=== PATIENT | male | born 1985 ===

== ENCOUNTER 2017-02-23 08:50 | Emergency (ER) | payer BC ==
[2017-02-23 08:58] VITALS: BMI 30.6
[2017-02-23 09:00] VITALS: BP 127/85; PULSE 82; RESP 18; TEMP 97.7; O2SAT 99
[2017-02-23] MEDS ORDERED: Amoxicillin-Clav 875-125 mg Tab PO STA (09:19)
[2017-02-23] MEDS ORDERED: Amoxicillin-Clav 875-125 mg Tab PO ONE (09:23)
--- NOTE | 2017-02-23 11:34 | C.PDOC ---
History Of Present Illness 31 yr old male presents to the ER with complaints of right ear pain since last night. Patient also states when he moves his jaw he hears a clicking sound. Patient denies fever, chills, drainage fro the ear, vision changes, neck pain or headache. Time Seen by Provider: 02/23/17 09:12 Chief Complaint (Nursing): ENT Problem History Per: Patient History/Exam Limitations: None Onset/Duration Of Symptoms: Days Current Symptoms Are (Timing): Still Present Past Medical History Reviewed: Historical Data, Nursing Documentation, Vital Signs Vital Signs: Last Vital Signs Temp 97.7 F 02/23/17 08:58 Pulse 82 02/23/17 08:58 Resp 18 02/23/17 08:58 BP 127/85 02/23/17 08:58 Pulse Ox 99 02/23/17 11:35 Family History: States: No Known Family Hx - Social History Hx Alcohol Use: No Hx Substance Use: No - Immunization History Hx Tetanus Toxoid Vaccination: No Hx Influenza Vaccination: No Hx Pneumococcal Vaccination: No Review Of Systems Except As Marked, All Systems Reviewed And Found Negative. Constitutional: Negative for: Fever, Chills Eyes: Negative for: Vision Change ENT: Positive for: Ear Pain (Right ear). Negative for: Ear Discharge Musculoskeletal: Negative for: Neck Pain Neurological: Negative for: Headache Physical Exam - Physical Exam Appears: Non-toxic, No Acute Distress Skin: Warm, Dry, No Rash Head: Atraumatic, Normacephalic Ear(s): Left: Normal, Right: TM Erythema, TM Dull, Other (No mastoid tenderness) Oral Mucosa: Moist Lymphatic: Adenopathy (Right anterior cervical lymphadenopathy) Chest: Symmetrical, No Tenderness Cardiovascular: Rhythm Regular, No Murmur Respiratory: Normal Breath Sounds, No Rales, No Rhonchi, No Stridor, No Wheezing Neurological/Psych: Oriented x3, Normal Speech, Normal Motor ED Course And Treatment O2 Sat by Pulse Oximetry: 99 (RA) Pulse Ox Interpretation: Normal Medical Decision Making Medical Decision Making: PLAN: * Augmentin PO * Motrin PO Disposition - Disposition Referrals: [facility] [Outside] [facility] [Outside] Disposition: HOME/ ROUTINE Disposition Time: 09:15 Condition: GOOD Additional Instructions: Thank you for letting us take care of you today. Your provider was Dr. Passafaro. You were treated for an ear infection. The emergency medical care you received today was directed at your acute symptoms. If you were prescribed any medication, please fill it and take as directed. It may take several days for your symptoms to resolve. Return to the Emergency Department if your symptoms worsen, do not improve, or if you have any other problems. Please contact your doctor or call one of the physicians/clinics you have been referred to that are listed on the Patient Visit Information form that is included in your discharge packet. Bring any paperwork you were given at discharge with you along with any medications you are taking to your follow up visit. Our treatment cannot replace ongoing medical care by a primary care provider (PCP) outside of the emergency department. Thank you for allowing the [facility] team to be part of your care today. Follow up with the clinic in 3-5 days for outpatient care and further management. Prescriptions: Amoxicillin/Clavulanate [Augmentin 875 MG-125 MG] 1 tab PO Q12 #14 tab Ibuprofen [Motrin] 600 mg PO Q6 PRN #20 tab PRN Reason: Pain, Moderate (4-7) Instructions: Otitis Media (ED) Forms: [employer] (Yakut) - Clinical Impression Clinical Impression: Otitis media - Scribe Statement The provider has reviewed the documentation as recorded by the Clifford Tao Provider Attestation: All medical record entries made by the Clifford were at my direction and personally dictated by me. I have reviewed the chart and agree that the record accurately reflects my personal performance of the history, physical exam, medical decision making, and the department course for this patient. I have also personally directed, reviewed, and agree with the discharge instructions and disposition.
== END 2017-02-23 09:28 | disposition home or self-care (01) ==
LOC: C.ER 08:50
DX: H66.91 Otitis media, unspecified, right ear (principal)